=== PATIENT | male | born 2000 | race Caucasian/White ===

== ENCOUNTER 2020-11-19 01:04 | Emergency (ER) | payer BC ==
[~2020-11-19] VITALS: Ht 188 cm; Wt 68.2 kg
[2020-11-19] MEDS ORDERED: ibuprofen 200mg tablet PO ONE (01:35)
[2020-11-19 02:04] VITALS: BP 145/78
== END 2020-11-19 02:05 | disposition home or self-care (01) ==
LOC: ER 01:05
DX: R07.89 Other chest pain (principal); R11.0 Nausea
CPT/HCPCS: 71045; 93005; 99283